=== PATIENT | female | born 1955 | race Caucasian/White ===

== ENCOUNTER 2018-04-24 16:22 | Outpatient (REF) | payer MEDICAID, SELFPAY ==
--- NOTE | 2018-04-24 15:00 | PAPFT_PTH ---
PATIENT: Arcelia Juarez LOC: [facility] U#:[id number] AGE/SX: 63/F ROOM: RE04/24/[address]: Albertina Moseley : 1955 BED: DIS: 04/24/2018 SPEC #: [id number] RECD: 04/25/18 12:42 STATUS: ACOSTA REQ #: [id number] DWAYNE: 04/24/18 15:[address]: Albertina Moseley DEPT: [facility] Cytology RECD BY: Francisca Malcolm Tissues: 1 - CX/ENDOCX FOR PAP SMEARS Procedures: PAP THIN PREP/[facility] Screening HPV DNA PROBE Comments: [id number]
== END 2018-04-24 16:42 ==
LOC: NCHCN 16:22
PROVIDERS: PCP Registered Nurse; Visit Provider Registered Nurse
DX: Z12.4 Encounter for screening for malignant neoplasm of cervix (principal); Z11.51 Encounter for screening for human papillomavirus (HPV); Z00.00 Encounter for general adult medical examination without abnormal findings
CPT/HCPCS: 88142; 87624

== ENCOUNTER 2018-11-04 10:43 | Outpatient (REF) | payer MEDICARE, BC, SELFPAY ==
[2018-11-04 22:05] LABS: Anion Gap 6.4 mmol/L (3-11); BUN 19 mg/dL (7-18); CO2 29.6 mmol/L (21.0-32.0); CREATININE 0.75 mg/dL (0.55-1.02); Calcium 9.4 mg/dL (8.5-10.1); Chloride 102 mmol/L (98-107); Glucose 93 mg/dL (70-100); Potassium 5.1 mmol/L (3.5-5.1); Sodium 138 mmol/L (136-145)
== END 2018-11-04 11:03 ==
LOC: NCHCN 10:43
PROVIDERS: PCP Registered Nurse; Visit Provider Registered Nurse
DX: I10 Essential (primary) hypertension (principal)
CPT/HCPCS: 80048

== ENCOUNTER 2019-07-07 09:17 | Outpatient (REF) | payer MEDICARE, BC, SELFPAY ==
[2019-07-07 21:49] LABS: Calculated LDL 187 mg/dL; Cholesterol 280 mg/dL (<200); HDL Cholesterol 75 mg/dL (40-60); Triglyceride 92 mg/dL (<150)
[2019-07-09 14:27] LABS: Hepatitis C Ab w Rflx HCV PCR Negative (Negative)
== END 2019-07-07 09:37 ==
LOC: NCHCN 09:17
PROVIDERS: PCP Registered Nurse; Visit Provider Registered Nurse
DX: I10 Essential (primary) hypertension (principal); Z11.59 Encounter for screening for other viral diseases; Z13.6 Encounter for screening for cardiovascular disorders
CPT/HCPCS: 80061; 86803

== ENCOUNTER 2020-07-14 13:45 | Outpatient (REF) | payer MEDICARE, BC, SELFPAY ==
[2020-07-14 13:17] LABS: Calculated LDL 162 mg/dL (<100); Cholesterol 257 mg/dL (<200); HDL Cholesterol 81 mg/dL (40-60); Triglyceride 74 mg/dL (<150)
== END 2020-07-14 14:05 ==
LOC: NCHCN 13:45
PROVIDERS: PCP Registered Nurse; Visit Provider Registered Nurse
DX: E78.89 Other lipoprotein metabolism disorders
CPT/HCPCS: 80061

== ENCOUNTER 2021-01-26 09:11 | Outpatient (REF) | payer MEDICARE, BC, SELFPAY ==
[2021-01-26 15:09] LABS: Anion Gap 7.2 mmol/L (3-11); BUN 15 mg/dL (7-18); CO2 28.8 mmol/L (21.0-32.0); CREATININE 0.8 mg/dL (0.55-1.02); Calcium 9.1 mg/dL (8.5-10.1); Calculated LDL 71 mg/dL (<100); Chloride 105 mmol/L (98-107); Cholesterol 150 mg/dL (<200); Glucose 88 mg/dL (74-106); HDL Cholesterol 67 mg/dL (40-60); Potassium 4.6 mmol/L (3.5-5.1); Sodium 141 mmol/L (136-145); Triglyceride 63 mg/dL (<150)
== END 2021-01-26 09:12 | disposition home or self-care (01) ==
LOC: NCHCN 09:11
PROVIDERS: PCP Registered Nurse; Visit Provider Registered Nurse
DX: I10 Essential (primary) hypertension (principal); E78.5 Hyperlipidemia, unspecified
CPT/HCPCS: 80048; 80061

== ENCOUNTER 2022-05-10 18:33 | Outpatient (REF) | payer MEDICARE, BC, SELFPAY ==
[2022-05-10 21:25] LABS: Anion Gap 5.7 mmol/L (3-11); BUN 18 mg/dL (7-18); CO2 28.3 mmol/L (21.0-32.0); CREATININE 0.9 mg/dL (0.55-1.02); Calculated LDL 77 mg/dL (<100); Chloride 103 mmol/L (98-107); Cholesterol 169 mg/dL (<200); Glucose 99 mg/dL (74-106); HDL Cholesterol 83 mg/dL (40-60); Sodium 137 mmol/L (136-145); Triglyceride 49 mg/dL (<150)
== END 2022-05-10 18:34 | disposition home or self-care (01) ==
LOC: NCHCN 18:33
PROVIDERS: PCP Registered Nurse; Visit Provider Registered Nurse
DX: E78.5 Hyperlipidemia, unspecified (principal); I10 Essential (primary) hypertension; Z00.00 Encounter for general adult medical examination without abnormal findings
CPT/HCPCS: 80048; 80061

== ENCOUNTER 2023-06-06 11:41 | Outpatient (REF) | payer MEDICARE, SELFPAY ==
[2023-06-06 14:16] LABS: Anion Gap 6.9 mmol/L (3-11); BUN 15 mg/dL (7-18); CO2 29.1 mmol/L (21.0-32.0); CREATININE 0.9 mg/dL (0.55-1.02); Calcium 9.5 mg/dL (8.5-10.1); Calculated LDL 61 mg/dL (<100); Chloride 104 mmol/L (98-107); Cholesterol 159 mg/dL (<200); Estimated GFR 68.77 (mL/min/1.73m2); Glucose 113 mg/dL (74-106); HDL Cholesterol 88 mg/dL (40-60); Potassium 4.7 mmol/L (3.5-5.1); Sodium 140 mmol/L (136-145); Triglyceride 53 mg/dL (<150)
== END 2023-06-06 11:42 | disposition home or self-care (01) ==
LOC: NCHCN 11:41
PROVIDERS: PCP Registered Nurse; Visit Provider Nurse Practitioner Family
DX: I10 Essential (primary) hypertension (principal)
CPT/HCPCS: 80048; 80061

== ENCOUNTER 2024-06-02 09:12 | Outpatient (REF) | payer MEDICARE, SELFPAY ==
[2024-06-02 14:35] LABS: HGB 12.8 g/dL (11.2-15.7); MCH 28.8 pg (27.0-33.0); MCHC 32.8 % (32.0-36.0); MCV 88 fL (80-95); MPV 11.4 fL (8.0-11.0); Platelet Count 149 10^3/uL (130-400); RBC 4.44 10^6/uL (3.93-5.22); RDW 13.5 % (11.7-14.6); RDW-SD 43.8 fL; WBC 5.21 10^3/uL (4.4-10.8)
[2024-06-02 14:53] LABS: ALT 25 U/L (14-59); AST 23 U/L (15-37); Albumin 3.7 g/dL (3.4-5.0); Alkaline Phosphatase 61 U/L (46-116); Anion Gap 7.2 mmol/L (3-11); BUN 22 mg/dL (7-18); Bilirubin, Total 0.53 mg/dL (0.2-1.0); CO2 29.8 mmol/L (21.0-32.0); CREATININE 0.8 mg/dL (0.55-1.02); Calcium 9.4 mg/dL (8.5-10.1); Calculated LDL 61 mg/dL (<100); Chloride 108 mmol/L (98-107); Cholesterol 160 mg/dL (<200); Estimated GFR 78.72 (mL/min/1.73m2); Glucose 97 mg/dL (74-106); HDL Cholesterol 91 mg/dL (40-60); Potassium 4.5 mmol/L (3.5-5.1); Sodium 145 mmol/L (136-145); Total Protein 7.4 g/dL (6.4-8.2); Triglyceride 40 mg/dL (<150)
[2024-06-02 15:13] LABS: Hemoglobin A1C 5.8 % (<5.7)
== END 2024-06-02 09:13 | disposition home or self-care (01) ==
LOC: NCHCN 09:12
PROVIDERS: PCP Registered Nurse; Visit Provider Nurse Practitioner Family
DX: E78.5 Hyperlipidemia, unspecified (principal); R73.01 Impaired fasting glucose
CPT/HCPCS: 80053; 80061; 85027; 83036

== ENCOUNTER 2025-06-01 19:36 | Outpatient (REF) | payer MEDICARE, SELFPAY ==
[2025-06-01 17:08] LABS: ALT 18 U/L (10-49); AST 27 U/L (<34); Albumin 4.4 g/dL (3.2-5.0); Alkaline Phosphatase 60 U/L (46-116); Anion Gap 8.4 mmol/L (3-11); BUN 24 mg/dL (9-23); Bilirubin, Total 0.50 mg/dL (0.2-1.2); CO2 27.6 mmol/L (20.0-31.0); Calcium 9.4 mg/dL (8.3-10.6); Chloride 104 mmol/L (98-107); Cholesterol 147 mg/dL (<200); Glucose 106 mg/dL (74-106); HDL Cholesterol 80 mg/dL (>40); Potassium 4.2 mmol/L (3.5-5.1); Sodium 140 mmol/L (136-145); Total Protein 7.3 g/dL (5.7-8.2)
[2025-06-01 17:19] LABS: Hemoglobin A1C 5.6 % (<5.7)
== END 2025-06-01 19:37 | disposition home or self-care (01) ==
LOC: NCHCN 19:36
PROVIDERS: PCP Registered Nurse; Visit Provider Nurse Practitioner Family
DX: I10 Essential (primary) hypertension (principal); R73.03 Prediabetes; E78.5 Hyperlipidemia, unspecified
CPT/HCPCS: 80053; 80061; 83036